=== PATIENT | female | born 1975 | race Caucasian/White ===

== ENCOUNTER 2020-03-26 06:54 | Emergency (ER) | payer OTHER ==
[~2020-03-26] VITALS: Ht 162.6 cm; Wt 88.0 kg
[2020-03-26 08:13] LABS: BASOPHILS % 0.6 % (0.0-2.0); HEMATOCRIT. 35.9 % (36.0-48.0); HEMOGLOBIN. 12.2 g/dL (12.0-16.0); LYMPHOCYTES % 26.6 % (20.0-50.0); MEAN CORPUSCULAR HEMOGLOBIN 29.2 pg (28.0-32.0); MEAN PLATELET VOLUME 8.3 fl (7.4-10.4); MONOCYTES % 6.3 % (2.0-8.0); NEUTROPHILS % 64.5 % (40.0-76.0); PLATELET 229 x1000/uL (130-400); RED BLOOD CELL COUNT 4.18 mill/uL (4.2-5.4); RED CELL DISTRIBUTION WIDTH 13.7 % (11.6-14.6)
[2020-03-26 08:21] LABS: CHLORIDE 107 mEq/L (98-107)
[2020-03-26] MEDS: IBUPROFEN 600MG TABLET PO STA ×2 (08:58→08:59)
[2020-03-26 09:35] VITALS: BP 112/68
== END 2020-03-26 09:42 | disposition home or self-care (01) ==
LOC: ER 06:54
DX: R07.89 Other chest pain (principal); Z90.49 Acquired absence of other specified parts of digestive tract
CPT/HCPCS: 36415; 71045; 80053; 81025; 84484; 85025; 93005; 99285